=== PATIENT | female | born 1990 ===

== ENCOUNTER 2024-05-24 18:55 | Inpatient (IN) | payer OTHER ==
[2024-05-24] VITALS (9 sets, daily range): BP systolic 109–148; BP diastolic 58–88
[~2024-05-24] VITALS: Ht 162.6 cm; Wt 110.0 kg
[2024-05-24] MEDS ORDERED: Carboprost Tromethamine 250 MCG/ML 1ML Amp IM PRN (19:25)
[2024-05-24] MEDS ORDERED: Methylergonovine Maleate 0.2MG / ML 1ML Amp IM PRN (19:25)
[2024-05-24] MEDS ORDERED: Lactated Ringer's 1,000 ML IV PRN (19:25)
[2024-05-24] MEDS ORDERED: Misoprostol 25 MCG Tab VAG PRN (19:25)
[2024-05-24] MEDS ORDERED: Ondansetron HCl 2 MG / ML 2ML Vial IV PRN (19:25)
[2024-05-24] MEDS ORDERED: Calcium Carbonate 500 MG Tab Chew PO PRN (19:25)
[2024-05-24] MEDS ORDERED: Misoprostol 200 MCG Tab BC PRN (19:25)
[2024-05-24] MEDS ORDERED: OXYTOCIN/RINGER'S LACTATE 500 ML IV PRN (19:25)
[2024-05-24] MEDS ORDERED: Tranexamic Acid 100 ML IV SCH (19:25)
[2024-05-24] MEDS ORDERED: Acetaminophen 500 MG Tab PO PRN (19:25)
[2024-05-24] MEDS ORDERED: Lactated Ringer's 1,000 ML IV SCH ×3 (19:25→19:30)
[2024-05-24] MEDS ORDERED: Oxytocin 10 Unit / ML Vial IM PRN (19:25)
[2024-05-24] MEDS ORDERED: Misoprostol 200 MCG Tab PR PRN (19:25)
[2024-05-24] MEDS ORDERED: FentaNYL 2mcg/ml-Bup 0.1% Epd 250 ML EPI PRN (19:30)
[2024-05-24] MEDS ORDERED: ePHEDrine Sulfate 50 MG/ML 1ML Injection XX PRN (19:30)
[2024-05-24] MEDS ORDERED: PRENATAL TABLE1 EAC2 PO (19:51)
[2024-05-24 19:59] LABS: BASOPHILS ABSOLUTE AUTO 0.02 K/mm3 (0.00-0.23); BASOPHILS PERCENT AUTO 0 % (0-2); EOSINOPHILS ABSOLUTE AUTO 0.07 K/mm3 (0.00-0.68); EOSINOPHILS PERCENT AUTO 1 % (0-6); Hematocrit 35.3 % (33.0-51.0); Hemoglobin 12.2 g/dL (11.5-16.0); IMMATURE GRAN ABSOLUTE AUTO 0.02 K/mm3 (0.00-0.10); IMMATURE GRAN PERCENT AUTO 0 % (0-1); LYMPHOCYTES ABSOLUTE AUTO 2.45 K/mm3 (0.84-5.20); LYMPHOCYTES PERCENT AUTO 29 % (21-46); MONOCYTES ABSOLUTE AUTO 0.65 K/mm3 (0.16-1.47); MONOCYTES PERCENT AUTO 8 % (4-13); Mean Corpuscular HGB 29.5 pg (26.0-34.0); Mean Corpuscular HGB Conc 34.6 g/dL (31.5-36.5); Mean Corpuscular Volume 86 fL (80-100); Mean Platelet Volume 9.9 fL (9.1-12.4); NEUTROPHILS ABSOLUTE AUTO 5.23 K/mm3 (1.96-9.15); NEUTROPHILS PERCENT AUTO 62 % (41-73); Platelet Count 252 K/mm3 (150-400); RDW Standard Deviation 43.8 fL (35.1-46.3); Red Blood Cell Count 4.13 M/mm3 (3.80-5.20); White Blood Cell Count 8.44 K/mm3 (4.00-11.30)
[2024-05-25] VITALS (31 sets, daily range): BP systolic 116–151; BP diastolic 62–94
[2024-05-25] MEDS ORDERED: OXYTOCIN/RINGER'S LACTATE 500 ML IV SCH (15:55)
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
[2024-05-26] VITALS (33 sets, daily range): BP systolic 115–150; BP diastolic 63–96
[2024-05-26] MEDS ORDERED: CeFAZolin Sodium 2,000 MG in NS 100 ML IV SCH (05:15)
[2024-05-26] MEDS ORDERED: Azithromycin 500 MG in NS 250 ML IV SCH ×2 (05:15→05:35)
[2024-05-26] MEDS ORDERED: Citric Acid/Sodium Citrate 30 ML BTL PO PRN (05:20)
[2024-05-26] MEDS ORDERED: Metoclopramide HCl 5MG / ML 2ML Vial IV PRN (05:20)
[2024-05-26] MEDS ORDERED: Lidocaine HCl 2% 10 ML SDA ONE (06:05)
[2024-05-26] MEDS ORDERED: Oxytocin 10 Unit / ML Vial ONE (06:06)
[2024-05-26] MEDS ORDERED: FentaNYL Citrate 50 MCG/ML 2 ML Injection ONE (06:06)
[2024-05-26] MEDS ORDERED: Bupivacaine 0.5% HCl 5 MG/ML 30MLVIAL ONE (06:24)
[2024-05-26] MEDS ORDERED: Bupivacaine HCl 0.25% 30 ML Injection ONE (06:24)
[2024-05-26] MEDS ORDERED: propofoL 20 ML IV ONE (06:30)
[2024-05-26] MEDS ORDERED: Midazolam HCl 1MG / ML 2ML Vial ONE ×2 (06:31→06:52)
[2024-05-26] MEDS ORDERED: Ketamine HCl 100 MG / ML 5ML Vial ONE (06:32)
[2024-05-26] MEDS ORDERED: Ketorolac Tromethamine 30mg Vial ONE (06:47)
[2024-05-26] MEDS ORDERED: Dexamethasone Sod Phos 10 MG/ML 1ML VIAL ONE (06:47)
[2024-05-26 06:49] LABS: PCO2 Cord - Arterial 34.1 mmHg (40-50); PO2 Cord - Arterial 28.9 mmHg (16-20); pH Cord - Arterial 7.36 (7.28-7.35)
[2024-05-26 06:53] LABS: PCO2 Cord - Venous 33.7 mmHg (40-50); PO2 Cord - Venous 28.7 mmHg (28-32); pH Umbilical Cord - Venous 7.36 (7.26-7.35)
--- NOTE | 2024-05-26 06:57 | NUR ---
05/26/24 0657 Eunice Livingston 0650: ASSUME PT CARE. PT ASLEEP. NB OUT OF OR WITH FOB AND RN.
[2024-05-26] MEDS ORDERED: Misoprostol 200 MCG Tab PR PRN (07:20)
[2024-05-26] MEDS ORDERED: Acetaminophen 500 MG Tab PO PRN (07:20)
[2024-05-26] MEDS ORDERED: Rho(D) Immune Globulin 300 MCG / SYR IM SCH (07:20)
[2024-05-26] MEDS ORDERED: OxyCODONE HCL 5 MG TAB PO PRN (07:25)
[2024-05-26] MEDS ORDERED: OxyCODONE 5 mg/Acetamin 325 mg TABLET PO PRN (07:25)
[2024-05-26] MEDS ORDERED: Methylergonovine Maleate 0.2 MG Tab PO PRN (07:25)
[2024-05-26] MEDS ORDERED: Magnesium Hydroxide Conc 10 ML UDC PO PRN (07:25)
[2024-05-26] MEDS ORDERED: OXYTOCIN/RINGER'S LACTATE 500 ML IV SCH (07:25)
[2024-05-26] MEDS ORDERED: Simethicone 80 MG Chew PO PRN (07:25)
[2024-05-26] MEDS ORDERED: Ondansetron HCl 2 MG / ML 2ML Vial IV PRN (07:30)
[2024-05-26] MEDS ORDERED: HYDROcodone 5-APAP 325 TAB PO PRN (07:30)
[2024-05-26] MEDS ORDERED: Lanolin Cream TOP PRN (07:30)
[2024-05-26] MEDS ORDERED: DiphenhydrAMINE HCL 25 MG Cap PO PRN (07:30)
[2024-05-26] MEDS ORDERED: Lactated Ringer's 1,000 ML IV SCH (07:30)
[2024-05-26] MEDS ORDERED: Tranexamic Acid 1,000 MG in NS 100 ML IV SCH (07:40)
[2024-05-26] MEDS ORDERED: Ketorolac Tromethamine 30mg Vial IV SCH (08:00)
[2024-05-26] MEDS ORDERED: Ibuprofen 400 MG Tab PO SCH (08:00)
[2024-05-26] MEDS ORDERED: Prenatal Vit/FE Fumarate/FA 1 Tab PO SCH (09:00)
[2024-05-26] MEDS ORDERED: Docusate Sodium 100 MG Cap PO SCH (09:00)
[2024-05-26] MEDS ORDERED: Ketorolac Tromethamine 30mg Vial IV PRN (12:40)
[2024-05-26] MEDS ORDERED: Ibuprofen 400 MG Tab PO PRN (14:13)
[2024-05-27 02:35] VITALS: BP 122/69
[2024-05-27 06:17] LABS: BASOPHILS ABSOLUTE AUTO 0.06 K/mm3 (0.00-0.23); BASOPHILS PERCENT AUTO 0 % (0-2); EOSINOPHILS ABSOLUTE AUTO 0.04 K/mm3 (0.00-0.68); EOSINOPHILS PERCENT AUTO 0 % (0-6); Hematocrit 28.4 % (33.0-51.0); Hemoglobin 9.9 g/dL (11.5-16.0); IMMATURE GRAN PERCENT AUTO 1 % (0-1); LYMPHOCYTES ABSOLUTE AUTO 3.98 K/mm3 (0.84-5.20); LYMPHOCYTES PERCENT AUTO 17 % (21-46); MONOCYTES ABSOLUTE AUTO 1.56 K/mm3 (0.16-1.47); MONOCYTES PERCENT AUTO 7 % (4-13); Mean Corpuscular HGB 29.8 pg (26.0-34.0); Mean Corpuscular HGB Conc 34.9 g/dL (31.5-36.5); Mean Corpuscular Volume 86 fL (80-100); Mean Platelet Volume 10.1 fL (9.1-12.4); NEUTROPHILS ABSOLUTE AUTO 17.12 K/mm3 (1.96-9.15); NEUTROPHILS PERCENT AUTO 75 % (41-73); Platelet Count 207 K/mm3 (150-400); RDW Coefficient Variation 14.5 % (11.7-14.2); RDW Standard Deviation 45.1 fL (35.1-46.3); Red Blood Cell Count 3.32 M/mm3 (3.80-5.20); White Blood Cell Count 22.96 K/mm3 (4.00-11.30)
[2024-05-27 07:41] VITALS: BP 135/70
[2024-05-27] MEDS ORDERED: Sod Ferric Gluc Complx/Sucrose 125 MG in NS 100 ML IV ONE (10:25)
[2024-05-27 11:15] VITALS: BP 135/70
[2024-05-27] MEDS ORDERED: Percocet 5-3251 EACH PO (15:36)
[2024-05-27] MEDS ORDERED: IBUP800 PO (15:37)
[2024-05-27] MEDS ORDERED: DOCU100 PO (15:38)
[2024-05-27 16:38] VITALS: BP 116/72
--- NOTE | 2024-05-27 19:10 | NUR ---
Assumed care of pt and her , report given to by day shift GUMARO Ricci
[2024-05-27 19:25] VITALS: BP 143/89
--- NOTE | 2024-05-27 22:00 | NUR ---
Pt calling for assistance with feeding, is restless and pt is worried she is not getting enough to eat, pt is tearful about her feedings with requiring feeds every hr to properly rest. Reasurance and comfort given to her along with further education of breast feedings.
[2024-05-27 23:40] VITALS: BP 126/74
--- NOTE | 2024-05-28 | NUR ---
Pt calling out for assistance with feeding S&S feeding completed with FOB helping, pt appears tearful about feeding, needing reasurance
--- NOTE | 2024-05-28 01:30 | NUR ---
Pt requesting staff to assist with feeding , bottle feeding of donor milk given, staff assuming care of while pt and FOB are resting
--- NOTE | 2024-05-28 02:52 | NUR ---
Pt is resting well, denies needing any pain medication at this time, is bonding well with
[2024-05-28 05:26] VITALS: BP 128/80
[2024-05-28 08:05] VITALS: BP 142/84
--- NOTE | 2024-05-28 09:30 | NUR ---
Hailey WALLACE CNM IN TO SEE PT. UPDATED ON EPDS SCORE OF 11 AND NO TOOL LIAISON AVAILABLE ON WEEKENDS AT THIS TIME. DISCSUSSED THAT PER SOFIA MONTES DE OCA, PATM ABLE TO SEE PT AND CLEAR HER TO GO HOME TODAY.
== END 2024-05-28 11:35 | disposition home or self-care (01) | DRG 787 ==
LOC: OBS 18:55 → BC 18:57 → OBS 19:12 → BC 19:13
PROVIDERS: ADMIT Obstetrics & Gynecology
PROC: 10D00Z1 Extraction of Products of Conception, Low, Open Approach (ICD-10-PCS; principal; 2024-05-25)
DX: O32.8XX0 Maternal care for other malpresentation of fetus, not applicable or unspecified (principal); O98.52 Other viral diseases complicating childbirth; Z37.0 Single live birth; O48.0 Post-term pregnancy; O90.81 Anemia of the puerperium; O76 Abnormality in fetal heart rate and rhythm complicating labor and delivery; O77.0 Labor and delivery complicated by meconium in amniotic fluid; B00.9 Herpesviral infection, unspecified; O99.344 Other mental disorders complicating childbirth; F32.A Depression, unspecified; Z3A.40 40 weeks gestation of pregnancy; Z87.891 Personal history of nicotine dependence
CPT/HCPCS: 36415; 51702; 82803; 85025; 86850; 86900; 86901; 86923; A9270; J0456; J0690; J1100; J1885; J2003; J2250; J2590; J2704; J2765; J2916; J3010; J7050; J7120